=== PATIENT | male | born 1975 | race African-American/Black ===

== ENCOUNTER 2017-01-27 04:33 | Emergency (ER) | payer OTHER ==
--- NOTE | 2017-01-27 04:47 | PDOC ---
History of Present Illness - General Stated Complaint: SWELLING LFT ANKLE Time Seen by Provider: 01/27/17 04:39 History Source: Patient Exam Limitations: No Limitations - History of Present Illness Occurred: reports: yesterday Lower Extremity Pain Location: left: ankle (lat blister) Past History - Past Medical History Allergies/Adverse Reactions: Allergies Allergy/AdvReac Type Severity Reaction Status Date / Time No Known Allergies Allergy Verified 03/31/16 23:48 Home Medications: Ambulatory Orders NK [No Known Home Medication] 04/01/16 - Psycho/Social/Smoking Cessation Hx Anxiety: No Suicidal Ideation: No Smoking Status: No Smoking History: Never smoked Number of Cigarettes Smoked Daily: 0 Hx Alcohol Use: No *DC/Admit/Observation/Transfer Diagnosis at time of Disposition: Blister of ankle without infection Qualifiers: Encounter type: initial encounter Laterality: left Qualified Code(s): S90.522A - Blister (nonthermal), left ankle, initial encounter - Discharge Dispostion Disposition: HOME Condition at time of disposition: Stable - Patient Instructions Printed Discharge Instructions: DI for Blisters Additional Instructions: Elevate Tylenol/motrin for pain As discussed, if the blister on your ankle shall rupture, do not remove the skin. Return to the emergency department for signs of infection:increase redness, red streaks, purulent drainage
[2017-01-27 05:02] VITALS: BP 152/99; PULSE 106; TEMP 98.2; BMI 42.8
== END 2017-01-27 05:18 | disposition home or self-care (01) ==
LOC: JER 04:33
DX: S90.522A Blister (nonthermal), left ankle, initial encounter (principal)
CPT/HCPCS: 99281-25

== ENCOUNTER 2018-09-03 05:07 | Emergency (ER) | payer OTHER ==
--- NOTE | 2018-09-03 05:14 | PDOC ---
History of Present Illness - General Stated Complaint: SORE THROAT Time Seen by Provider: 09/03/18 05:13 Past History - Past Medical History Allergies/Adverse Reactions: Allergies Allergy/AdvReac Type Severity Reaction Status Date / Time No Known Allergies Allergy Verified 03/31/16 23:48 Home Medications: Ambulatory Orders NK [No Known Home Medication] 04/01/16 - Immunization History Td Vaccination: Yes Immunization Up to Date: Yes - Suicide/Smoking/Psychosocial Hx Smoking Status: No Smoking History: Unknown if ever smoked Number of Cigarettes Smoked Daily: 0 Hx Alcohol Use: No Drug/Substance Use Hx: No
[2018-09-03] MEDS ORDERED: DEXAMETHASONE SOD PHOSPHATE 10 MG/1 ML VIAL IM ONE (05:26)
[2018-09-03] MEDS ORDERED: IBUPROFEN 600 MG TABLET (FP) PO ONE ×2 (05:26→06:10)
[2018-09-03] MEDS ORDERED: AMOX TR/POT CLAV 875MG/125MG TABLETS (FP) PO ONE (05:26)
--- NOTE | 2018-09-03 05:26 | PDOC ---
History of Present Illness - General Chief Complaint: Sore Throat Stated Complaint: SORE THROAT Time Seen by Provider: 09/03/18 05:13 History Source: Patient - History of Present Illness Initial Comments: 09/03/18 05:46 43 year old male with sore throat x 3 days. reports fever on day. denies drooling, repsiratory distress. Past History - Past Medical History Allergies/Adverse Reactions: Allergies Allergy/AdvReac Type Severity Reaction Status Date / Time No Known Allergies Allergy Verified 09/03/18 05:37 Home Medications: Ambulatory Orders Amox-Tr/K Cl [Augmentin - 875Mg Tablet] 1 tab PO BID #20 tablet 09/03/18 - Immunization History Td Vaccination: Yes Immunization Up to Date: Yes - Suicide/Smoking/Psychosocial Hx Smoking Status: No Smoking History: Unknown if ever smoked Number of Cigarettes Smoked Daily: 0 Hx Alcohol Use: No Drug/Substance Use Hx: No *Physical Exam - Vital Signs 09/03/18 05:57 Last Vital Signs Temp Pulse Resp BP Pulse Ox 98.3 F 94 H 18 144/96 98 09/03/18 05:10 09/03/18 05:10 09/03/18 05:10 09/03/18 05:10 09/03/18 05:10 - Physical Exam General Appearance: Yes: Appropriately Dressed HEENT: positive: Other (almost kissing tonsills with exudate) Neck: positive: Lymphadenopathy (R), Lymphadenopathy (L) Respiratory/Chest: positive: Lungs Clear, Normal Breath Sounds *DC/Admit/Observation/Transfer Diagnosis at time of Disposition: Strep pharyngitis - Discharge Dispostion Disposition: HOME - Prescriptions Prescriptions: Amox-Tr/K Cl [Augmentin - 875Mg Tablet] 1 tab PO BID #20 tablet - Referrals Referrals: Maryse Barrow MD [Primary Care Provider] - Paolo Golden MD [Staff Physician] - Call tomorrow - Patient Instructions Printed Discharge Instructions: DI for Strep Throat Additional Instructions: gargle with warm salty water take ibuprofen every 6 hours as needed for pain take augmentin as prescribed, follow up with an ENT dr if symptoms doesn't resolved. Additional Instructions: * Please call your personal physician to report your Emergency Department visit and to report your progress, if any. * If there is no improvement in symptoms in 2 days call your physician. * Return to the Emergency Department for any worsening symptoms. - Post Discharge Activity Forms/Work/School Notes: Back to Work
[2018-09-03 05:37] VITALS: BP 144/96; PULSE 94; TEMP 98.3; BMI 42.8
[2018-09-03] MEDS ORDERED: DEXAMETHASONE SOD PHOSPHATE 10 MG/1 ML VIAL ONE (06:09)
[2018-09-03] MEDS ORDERED: AMOX TR/POT CLAV 875MG/125MG TABLETS (FP) ONE (06:10)
== END 2018-09-03 06:22 | disposition home or self-care (01) ==
LOC: JER 05:07
PROC: 3E023GC Introduction of Other Therapeutic Substance into Muscle, Percutaneous Approach (ICD-10-PCS; principal; 2018-09-03)
DX: J02.0 Streptococcal pharyngitis (principal)
CPT/HCPCS: 87070; 87077; 87430; 96372; 99281-25; J1100

== ENCOUNTER 2018-10-01 00:53 | Emergency (ER) | payer OTHER ==
--- NOTE | 2018-10-01 01:54 | PDOC ---
History of Present Illness - General Chief Complaint: Injury Stated Complaint: THROAT PAIN Time Seen by Provider: 10/01/18 01:52 History Source: Patient - History of Present Illness Initial Comments: 10/01/18 03:05 43 year old male with throat pain and nasal congestion x 3 days. patient reports that he has dryness to throat. denies fever/ chills and throat pain. patient reports that he had 4 episodes of vomiting today. pMHX: strep pharyngitis, gout, GERD 10/01/18 03:08 Past History - Past Medical History Allergies/Adverse Reactions: Allergies Allergy/AdvReac Type Severity Reaction Status Date / Time No Known Allergies Allergy Verified 09/03/18 05:37 Home Medications: Ambulatory Orders Amox-Tr/K Cl [Augmentin - 875Mg Tablet] 1 tab PO BID #20 tablet 09/03/18 Fluticasone Prop 0.05% Nasal [Flonase -] 1 - 2 spray NS BID #1 spray.pump - Immunization History Td Vaccination: Yes Immunization Up to Date: Yes - Suicide/Smoking/Psychosocial Hx Smoking Status: No Smoking History: Unknown if ever smoked Have you smoked in the past 12 months: No Number of Cigarettes Smoked Daily: 0 Hx Alcohol Use: No Drug/Substance Use Hx: No Review of Systems - Review of Systems Able to Perform ROS?: Yes Is the patient limited Lithuanian proficient: No Constitutional: No: Symptoms Reported, See HPI, Chills, Diaphoresis, Fever, Loss of Appetite, Malaise, Night Sweats, Weakness, Weight Stable, Unintentional Wgt. Loss, Unexplained wgt Loss, Other HEENTM: Yes: Nose Congestion, Throat Pain, Throat Swelling ABD/GI: Yes: Nausea, Vomiting. No: Abdominal cramping *Physical Exam - Physical Exam HEENT: positive: Tonsillar Erythema (with almost kissing tonsil. no hot potatoe voice. ) Respiratory/Chest: positive: Lungs Clear, Normal Breath Sounds Gastrointestinal/Abdominal: positive: Normal Bowel Sounds, Soft. negative: Tender Extremity: positive: Normal Capillary Refill, Normal Inspection Integumentary: positive: Normal Color, Dry, Warm Neurologic: positive: Fully Oriented, Alert, Normal Mood/Affect Medical Decision Making - Medical Decision Making 10/01/18 03:10 recurrent pharyngitis P: rapid strep negative. throat culture pending. pain control zantac zofran *DC/Admit/Observation/Transfer Diagnosis at time of Disposition: Pharyngitis Qualifiers: Pharyngitis/tonsillitis etiology: unspecified etiology Qualified Code(s): J02.9 - Acute pharyngitis, unspecified - Prescriptions Prescriptions: Fluticasone Prop 0.05% Nasal [Flonase -] 1 - 2 spray NS BID #1 spray.pump - Referrals Referrals: Maryse Barrow MD [Primary Care Provider] - Paolo Golden MD [Staff Physician] - Call tomorrow - Patient Instructions Printed Discharge Instructions: DI for Pharyngitis/Tonsillopharyngitis -- Adult Additional Instructions: gargle with warm salty water. drink plenty of fluids use nasal spray as prescribed. follow up with t=your doctor as soon as possible. Additional Instructions: * Please call your personal physician to report your Emergency Department visit and to report your progress, if any. * If there is no improvement in symptoms in 2 days call your physician. * Return to the Emergency Department for any worsening symptoms. - Post Discharge Activity Forms/Work/School Notes: Back to Work
[2018-10-01] MEDS ORDERED: IBUPROFEN 600 MG TABLET (FP) PO ONE ×2 (02:03→02:44)
[2018-10-01] MEDS ORDERED: DEXAMETHASONE 4 MG TABLET (FP) PO ONE (02:15)
[2018-10-01] MEDS ORDERED: DEXAMETHASONE SOD PHOSPHATE 10 MG/1 ML VIAL IVPUSH ONE (02:30)
[2018-10-01] MEDS ORDERED: DEXAMETHASONE SOD PHOSPHATE 10 MG/1 ML VIAL ONE (02:44)
[2018-10-01] MEDS ORDERED: ONDANSETRON 4 MG TABLET PO ONE (03:08)
[2018-10-01] MEDS ORDERED: RANITIDINE HCL 150 MG TABLET (FP) PO ONE (03:08)
[2018-10-01] MEDS ORDERED: RANITIDINE HCL 150 MG TABLET (FP) ONE (03:14)
[2018-10-01] MEDS ORDERED: ONDANSETRON *ODT* 4 MG TABLET ONE (03:15)
[2018-10-01 03:23] VITALS: BP 132/78; PULSE 78; TEMP 97.9; BMI 83.3
== END 2018-10-01 03:23 | disposition home or self-care (01) ==
LOC: JER 00:53
PROC: 3E033GC Introduction of Other Therapeutic Substance into Peripheral Vein, Percutaneous Approach (ICD-10-PCS; principal; 2018-10-01)
DX: J02.9 Acute pharyngitis, unspecified (principal)
CPT/HCPCS: 87070; 87430; 96374; 99281-25; J1100

== ENCOUNTER 2021-05-15 04:11 | Emergency (ER) | payer OTHER ==
[2021-05-15 04:27] VITALS: BP 155/105; PULSE 87; TEMP 98.2; BMI 36.9
[2021-05-15] MEDS ORDERED: FAMOTIDINE 20 MG TABLET PO ONE (04:34)
[2021-05-15] MEDS ORDERED: predniSONE 20 MG TABLET (UD) PO ONE (04:36)
[2021-05-15] MEDS ORDERED: FAMOTIDINE 20 MG TABLET ONE (04:51)
[2021-05-15] MEDS ORDERED: predniSONE 20 MG TABLET (UD) ONE (04:51)
== END 2021-05-15 06:53 | disposition home or self-care (01) ==
LOC: JER 04:11
DX: T78.40XA Allergy, unspecified, initial encounter (principal)
CPT/HCPCS: 99283-25

== ENCOUNTER 2021-10-06 03:51 | Emergency (ER) | payer OTHER ==
[2021-10-06 04:19] VITALS: BP 156/93; PULSE 98; TEMP 98.1; BMI 39.4
[2021-10-06] MEDS ORDERED: LORATADINE 10 MG TABLET PO ONE (04:31)
[2021-10-06] MEDS ORDERED: LORATADINE 10 MG TABLET ONE (04:41)
== END 2021-10-06 04:52 ==
LOC: JER 03:51
DX: H57.89 Other specified disorders of eye and adnexa (principal)
CPT/HCPCS: 99283-25

== ENCOUNTER 2023-02-13 18:16 | Emergency (ER) | payer OTHER ==
[2023-02-13 18:28] VITALS: PULSE 117; TEMP 98.1; BMI 42.0
[2023-02-13] MEDS ORDERED: KETOROLAC TROMETHAMINE 30 MG/1 ML VIAL IM ONE (20:16)
[2023-02-13] MEDS ORDERED: KETOROLAC TROMETHAMINE 30 MG/1 ML VIAL ONE (20:30)
[2023-02-13] MEDS ORDERED: predniSONE 20 MG TABLET (UD) PO ONE (21:17)
[2023-02-13] MEDS ORDERED: predniSONE 20 MG TABLET (UD) ONE (21:30)
[2023-02-13 21:43] VITALS: BP 142/97; RESP 17
== END 2023-02-13 21:43 | disposition home or self-care (01) ==
LOC: JER 18:16
PROC: 3E0233Z Introduction of Anti-inflammatory into Muscle, Percutaneous Approach (ICD-10-PCS; principal; 2023-02-13)
DX: M10.061 Idiopathic gout, right knee (principal)
CPT/HCPCS: 99284-25

== ENCOUNTER 2023-08-30 17:18 | Emergency (ER) | payer OTHER ==
[2023-08-30 17:25] VITALS: BP 159/113; PULSE 90; RESP 18; TEMP 98.5; BMI 36.9
[2023-08-30] MEDS ORDERED: KETOROLAC TROMETHAMINE 30 MG/1 ML VIAL IM ONE (17:43)
[2023-08-30] MEDS ORDERED: diazePAM 5 MG TABLET PO ONE (17:43)
[2023-08-30] MEDS ORDERED: diazePAM 5 MG TABLET ONE (17:47)
[2023-08-30] MEDS ORDERED: KETOROLAC TROMETHAMINE 30 MG/1 ML VIAL ONE (17:47)
== END 2023-08-30 19:14 | disposition home or self-care (01) ==
LOC: FER 17:18
PROC: 3E0233Z Introduction of Anti-inflammatory into Muscle, Percutaneous Approach (ICD-10-PCS; principal; 2023-08-30)
DX: M54.50 Low back pain, unspecified (principal); S39.012A Strain of muscle, fascia and tendon of lower back, initial encounter; X50.1XXA Overexertion from prolonged static or awkward postures, initial encounter
CPT/HCPCS: 99284-25

== ENCOUNTER 2023-11-12 22:56 | Emergency (ER) | payer OTHER ==
[2023-11-12 23:07] VITALS: BP 147/101; PULSE 120; RESP 18; TEMP 100.3; BMI 42.8
[2023-11-12] MEDS ORDERED: AMOXICILLIN 500 MG CAPSULE (FP) PO ONE (23:34)
[2023-11-12] MEDS ORDERED: predniSONE 20 MG TABLET (UD) PO ONE (23:34)
[2023-11-12] MEDS ORDERED: AMOXICILLIN 250 MG CAPSULE ONE (23:43)
[2023-11-12] MEDS ORDERED: predniSONE 20 MG TABLET (UD) ONE (23:43)
== END 2023-11-12 23:48 | disposition home or self-care (01) ==
LOC: FER 22:56
DX: J02.9 Acute pharyngitis, unspecified (principal); R09.81 Nasal congestion; R50.9 Fever, unspecified; Z20.822 Contact with and (suspected) exposure to COVID-19
CPT/HCPCS: 0241U-QW; 87651; 99283-25